=== PATIENT | male | born 1950 | race Caucasian/White ===

== ENCOUNTER 2017-05-19 11:18 | Inpatient (IN) | payer MEDICARE, BC ==
[~2017-05-19] VITALS: Ht 180.3 cm; Wt 115.9 kg
[2017-05-19 11:42] VITALS: BP 148/87
[2017-05-19 13:14] LABS: ALBUMIN 3.2 g/dL (3.4-5.0); ALBUMIN/GLOBULIN RATIO 0.7 (1.0-1.7); GFR 74.3; POTASSIUM 3.9 mmol/L (3.5-5.1); TOTAL BILIRUBIN 0.4 mg/dL (0.2-1.0); TOTAL PROTEIN 7.6 g/dL (6.4-8.2)
[2017-05-19] MEDS ORDERED: HYDROcodone/APAP 7.5/325MG 1 TAB TABLET PO PRN (13:30)
[2017-05-19 13:44] LABS: BASO % 0 % (0-3); EOS # 0.2 x10^3/uL (0.0-0.7); EOS % 2 % (0-3); HEMOGLOBIN 13.1 g/dL (13.0-17.5); LYMPH # 2.4 x10^3/uL (1.0-4.8); LYMPH % 22 % (24-48); MEAN CORPUSCULAR HEMOGLOBIN 27 pg (25-35); MEAN CORPUSCULAR HGB CONC 33 g/dL (31-37); MEAN CORPUSCULAR VOLUME 82 fL (79-100); MONO # 1.2 x10^3/uL (0.0-1.1); MONO % 11 % (0-9); NEUT # 7.3 x10^3uL (1.8-7.7); NEUT % 65 % (31-73); PLATELET COUNT 368 x10^3/uL (140-400); RED BLOOD COUNT 4.85 x10^6/uL (4.30-5.70); RED CELL DISTRIBUTION WIDTH 15.3 % (11.5-14.5); WHITE BLOOD COUNT 11.1 x10^3/uL (4.0-11.0)
[2017-05-19] MEDS ORDERED: HYDR25TA9 PO (14:15)
[2017-05-19] MEDS ORDERED: INSU100I32 SQ (14:15)
[2017-05-19] MEDS ORDERED: ICOS1CAP PO (14:15)
[2017-05-19] MEDS ORDERED: SITA1TAB11 PO (14:15)
[2017-05-19] MEDS ORDERED: LIRA0.6P2 SQ (14:15)
[2017-05-19] MEDS ORDERED: PREG100C PO (14:15)
[2017-05-19] MEDS ORDERED: HYDR-2766 PO (14:15)
[2017-05-19] MEDS ORDERED: LISI-334 PO (14:15)
[2017-05-19] MEDS ORDERED: ZOLP10TA PO (14:15)
[2017-05-19] MEDS ORDERED: OMEP20TA63 PO (14:15)
[2017-05-19] MEDS ORDERED: FENO160T PO (14:15)
[2017-05-19 14:21] LABS: % BANDS 1 % (0-9); % EOS 4 % (0-5); % LYMPHS 28 % (24-48); % MONOS 14 % (0-10); % SEGS 53 % (35-66); PLT ESTIMATE ADEQUATE (ADEQUATE)
[2017-05-19] MEDS ORDERED: VANCOMYCIN 2 GM in IV NORMAL SALINE 500ML 500 ML IV ONE (15:00)
[2017-05-19] MEDS: HEPARIN PF for SUB-Q USE 5,000 UNIT/0.5 ML VIAL. SQ SCH ×2 (15:01→21:14)
[2017-05-19] MEDS: PREGABALIN 100 MG CAPSULE PO SCH ×2 (15:01→21:13)
[2017-05-19 15:32] VITALS: BP 125/65
[2017-05-19] MEDS: VANCOMYCIN PER PHARMACY MC PRN (16:02)
--- NOTE | 2017-05-19 16:44 | RAD ---
Right lower extremity venous duplex ultrasound. 05/19/2017 4:40 PM Indication: Right lower extremity edema and tenderness Comparison study: None Discussion: Sonographic evaluation of the deep veins of the right lower extremity was performed. This includes grayscale imaging and color duplex imaging with spectral analysis. No evidence of deep venous thrombosis is seen. Interrogated veins are compressible and demonstrate augmentable blood flow and color Doppler imaging. Mildly prominent lymph node noted in the right groin measuring 4.3 x 1.0 (short axis) x 2.0 cm. Impression: 1.No evidence of deep venous thrombosis involving the right lower extremity 2. Mildly prominent lymph node the right groin. Findings most commonly reactive. Consider ultrasound follow up clinical concern persists.
[2017-05-19] MEDS ORDERED: LORazepam 2 MG/ML VIAL IV PRN (18:45)
[2017-05-19] MEDS: HYDROcodone/APAP 10/325 1 TAB TABLET PO PRN (19:46)
[2017-05-19 20:57] VITALS: BP 127/88
[2017-05-19] MEDS: NON FORMULARY ITEM (Icosapent Ethyl (Vascepa) 2 CAP) PO SCH (21:00)
[2017-05-19] MEDS: LACTOBACILLUS RHAMNOSUS GG 1 CAPSULE. PO SCH (21:11)
[2017-05-19] MEDS: ZOLPIDEM 5 MG TABLET. PO SCH (21:11)
[2017-05-19] MEDS: INSULIN GLARGINE HUM REC ANLOG 65 UNIT SQ SCH (21:12)
[2017-05-20 00:11] VITALS: BP 152/75
[2017-05-20] MEDS: HYDROcodone/APAP 10/325 1 TAB TABLET PO PRN ×4 (02:28→22:38)
[2017-05-20] MEDS: VANCOMYCIN 1.75 GM in IV NORMAL SALINE 500ML 500 ML IV SCH ×2 (02:28→15:33)
[2017-05-20] MEDS: PREGABALIN 100 MG CAPSULE PO SCH ×3 (05:17→22:00)
[2017-05-20] MEDS: HEPARIN PF for SUB-Q USE 5,000 UNIT/0.5 ML VIAL. SQ SCH ×3 (05:24→22:00)
[2017-05-20 06:15] LABS: BASO # 0.1 x10^3/uL (0.0-0.2); BASO % 1 % (0-3); EOS # 0.4 x10^3/uL (0.0-0.7); EOS % 4 % (0-3); HEMATOCRIT 35.6 % (39.0-53.0); HEMOGLOBIN 11.9 g/dL (13.0-17.5); LYMPH # 3.8 x10^3/uL (1.0-4.8); LYMPH % 36 % (24-48); MEAN CORPUSCULAR HEMOGLOBIN 28 pg (25-35); MEAN CORPUSCULAR HGB CONC 33 g/dL (31-37); MEAN CORPUSCULAR VOLUME 83 fL (79-100); MONO # 1.2 x10^3/uL (0.0-1.1); MONO % 11 % (0-9); NEUT # 5.2 x10^3uL (1.8-7.7); NEUT % 49 % (31-73); PLATELET COUNT 342 x10^3/uL (140-400); RED CELL DISTRIBUTION WIDTH 15.1 % (11.5-14.5); WHITE BLOOD COUNT 10.7 x10^3/uL (4.0-11.0)
[2017-05-20 06:20] LABS: CALCIUM 8.5 mg/dL (8.5-10.1); CREATININE 0.9 mg/dL (0.7-1.3); GFR 83.9; POTASSIUM 3.8 mmol/L (3.5-5.1)
[2017-05-20] MEDS ORDERED: metFORMIN XR 500 MG TAB.ER.24H PO SCH (08:00)
[2017-05-20] MEDS: PANTOPRAZOLE 40 MG TABLET. PO SCH (08:12)
[2017-05-20] MEDS: THIAMINE 100 MG TABLET. PO SCH (08:13)
[2017-05-20 08:15] VITALS: BP 155/74
[2017-05-20] MEDS: LISINOPRIL 20 MG TABLET PO SCH (08:19)
[2017-05-20] MEDS: FENOFIBRATE NANOCRYSTALLIZED 145 MG TABLET PO SCH (08:19)
[2017-05-20] MEDS: LACTOBACILLUS RHAMNOSUS GG 1 CAPSULE. PO SCH ×2 (08:20→21:00)
[2017-05-20] MEDS: NON FORMULARY ITEM (Liraglutide (Victoza 3-Pak) 1.8 MG) SQ SCH (08:28)
[2017-05-20] MEDS ORDERED: LINAGLIPTIN 5 MG TABLET PO SCH (09:00)
[2017-05-20] MEDS: NON FORMULARY ITEM (Icosapent Ethyl (Vascepa) 2 CAP) PO SCH ×2 (09:00→21:00)
[2017-05-20] MEDS ORDERED: hydroCHLOROthiazide 25 MG TABLET PO SCH (09:00)
[2017-05-20] MEDS ORDERED: IOHEXOL 300 MG/ML 75 ML VIAL. IV ONE (10:20)
[2017-05-20 10:42] VITALS: BP 159/58
--- NOTE | 2017-05-20 11:07 | RAD ---
CTA of the chest. 05/20/2017 Indication: Elevated d-dimer. Shortness of breath. Comparison study: [None available] Technique: Multidetector CT imaging of the chest was performed following the administration of intravenous contrast. Multiple reconstructions including 3-D maximum intensity projection reconstructions were created on an independent workstation and reviewed. Findings: There is no evidence of filling defect within central pulmonary arteries or other evidence of acute pulmonary embolism. Heart size is normal. No significant pericardial effusion is seen. No pathologic mediastinal adenopathy is identified. No pneumothorax or pleural effusion is seen. No acute osseous abnormality is identified. Very mild patchy groundglass infiltrates are noted in the bilateral upper lobes. Limited visualization of the upper abdomen demonstrates no acute abnormality. Impression: 1. No evidence of acute pulmonary embolism 2. Nonspecific, very mild patchy groundglass infiltrates in the bilateral upper lobes. Findings could represent mild nonspecific pneumonitis or possibly an early atypical infectious process PQRS Compliance Statement: One or more of the following individualized dose reduction techniques were utilized for this examination: 1. Automated exposure control 2. Adjustment of the mA and/or kV according to patient size 3. Use of iterative reconstruction technique
[2017-05-20] MEDS ORDERED: FUROSEMIDE 40 MG/4 ML VIAL IVP SCH (13:15)
[2017-05-20] MEDS ORDERED: DEXTROSE 50% 25 GM / 50ML DISP.SYRIN. IV PRN (14:45)
[2017-05-20 15:11] VITALS: BP 146/56
[2017-05-20] MEDS: INSULIN ASPART 300 UNITS/3 ML INSULN.PEN SQ SCH ×2 (17:00→22:37)
[2017-05-20 19:47] VITALS: BP 160/78
[2017-05-20] MEDS: ZOLPIDEM 5 MG TABLET. PO SCH (21:00)
[2017-05-20] MEDS: INSULIN GLARGINE HUM REC ANLOG 65 UNIT SQ SCH (22:37)
[2017-05-20 23:08] VITALS: BP 131/84
[2017-05-21 02:42] LABS: VANC TR 16.7 mcg/mL (10.0-20.0)
[2017-05-21] MEDS: VANCOMYCIN 1.75 GM in IV NORMAL SALINE 500ML 500 ML IV SCH ×2 (03:20→15:37)
[2017-05-21] MEDS: HYDROcodone/APAP 10/325 1 TAB TABLET PO PRN ×4 (03:21→21:28)
[2017-05-21 05:16] VITALS: BP 144/73
[2017-05-21] MEDS: HEPARIN PF for SUB-Q USE 5,000 UNIT/0.5 ML VIAL. SQ SCH ×3 (05:53→21:32)
[2017-05-21] MEDS: PREGABALIN 100 MG CAPSULE PO SCH ×3 (05:54→21:28)
[2017-05-21] MEDS: INSULIN ASPART 300 UNITS/3 ML INSULN.PEN SQ SCH ×4 (07:30→21:33)
[2017-05-21] MEDS: VANCOMYCIN PER PHARMACY MC PRN (08:19)
[2017-05-21] MEDS: metOLazone 5 MG TABLET PO SCH (08:26)
[2017-05-21] MEDS: LISINOPRIL 20 MG TABLET PO SCH (08:26)
[2017-05-21] MEDS: THIAMINE 100 MG TABLET. PO SCH (08:26)
[2017-05-21] MEDS: LACTOBACILLUS RHAMNOSUS GG 1 CAPSULE. PO SCH ×2 (08:26→21:28)
[2017-05-21] MEDS: PANTOPRAZOLE 40 MG TABLET. PO SCH (08:26)
[2017-05-21] MEDS: FENOFIBRATE NANOCRYSTALLIZED 145 MG TABLET PO SCH (08:26)
[2017-05-21] MEDS: NON FORMULARY ITEM (Icosapent Ethyl (Vascepa) 2 CAP) PO SCH ×2 (08:27→21:00)
[2017-05-21] MEDS: NON FORMULARY ITEM (Liraglutide (Victoza 3-Pak) 1.8 MG) SQ SCH (08:32)
[2017-05-21] MEDS ORDERED: FUROSEMIDE 40 MG/4 ML VIAL IVP SCH (09:00)
[2017-05-21] MEDS ORDERED: metOLazone 5 MG TABLET PO SCH (09:00)
[2017-05-21] MEDS: hydroCHLOROthiazide 25 MG TABLET PO SCH (09:30)
[2017-05-21 10:51] VITALS: BP 122/56
--- NOTE | 2017-05-21 14:06 | PN ---
DATE: 05/19/2017 SUBJECTIVE: A 67-year-old gentleman with cellulitis to the legs, sepsis, apparently been having positive lactic acid, fairly significant in the 2 range. As a result of this, the patient obviously is on double antibiotics including vancomycin and Levaquin and he is doing a little bit better. His white count has come down from 11 down to 10 and the patient has an increase in monocytes and his lactic acid was staying around as high as 3.9, down to 2.2. ____ double antibiotic therapy. The patient had a CTA because of the positive D-dimer. Possibly atypical pneumonia was noted incidentally in there, but he is on double antibiotics, but, they may check it just to make sure that if there has been ____. The leg looks much better, less swollen, but less redness, but we will go ahead and continue to diurese him, make further evaluation on him as indicated. IMPRESSION: Cellulitis to the leg, type 2 diabetes, peripheral edema. KEN SHAY MD DR: [email or web address] JOB#: [id number] / [id number]
[2017-05-21 14:49] VITALS: BP 134/76
[2017-05-21] MEDS ORDERED: IPRATRPIUM/ALBUTEROL 0.5/2.5MG 3 ML NEBU. ONE (15:40)
[2017-05-21 19:41] VITALS: BP 154/68
[2017-05-21] MEDS: IPRATRPIUM/ALBUTEROL 0.5/2.5MG 3 ML NEBU. NEB SCH (21:00)
[2017-05-21] MEDS: INSULIN GLARGINE HUM REC ANLOG 65 UNIT SQ SCH (21:27)
[2017-05-21] MEDS: ZOLPIDEM 5 MG TABLET. PO SCH (21:28)
[2017-05-21 22:43] VITALS: BP 174/69
[2017-05-22] MEDS: VANCOMYCIN 1.75 GM in IV NORMAL SALINE 500ML 500 ML IV SCH (03:13)
[2017-05-22] MEDS: HYDROcodone/APAP 10/325 1 TAB TABLET PO PRN ×2 (03:13→09:12)
--- NOTE | 2017-05-22 03:29 | PN ---
DATE: SUBJECTIVE: The patient in with cellulitis to the right lower leg, doing better there. He is still having quite a bit of swelling and because of HIS ALLERGY TO FUROSEMIDE, he has to stay with the ____ started him with Zaroxolyn and metformin. We will go ahead and continue to try to diurese him with the HydroDIURIL and the metolazone, Zaroxolyn. OBJECTIVE: LUNGS: Otherwise, show some expiratory wheezes. CARDIOVASCULAR: Regular sinus rhythm. ABDOMEN: Soft, nontender and protuberant. EXTREMITIES: Right leg, the inflammation is down, but the swelling is significant ____ on top of his foot and +2 on the lower extremities. We will continue to try to diurese him and make further evaluation on those results. Otherwise, cellulitis of the right lower leg. Significant edema to the lower extremities. Pneumonia of unspecified etiology, exacerbation of COPD, morbid obesity, and type 2 diabetes. KEN SHAY MD DR: [email or web address] JOB#: [id number] / [id number]
[2017-05-22] MEDS: PREGABALIN 100 MG CAPSULE PO SCH (05:37)
[2017-05-22 05:38] VITALS: BP 132/75
[2017-05-22] MEDS: HEPARIN PF for SUB-Q USE 5,000 UNIT/0.5 ML VIAL. SQ SCH (05:45)
[2017-05-22 06:02] LABS: BASO # 0.1 x10^3/uL (0.0-0.2); BASO % 1 % (0-3); EOS # 0.4 x10^3/uL (0.0-0.7); EOS % 4 % (0-3); HEMATOCRIT 34.9 % (39.0-53.0); HEMOGLOBIN 11.4 g/dL (13.0-17.5); LYMPH # 3.6 x10^3/uL (1.0-4.8); LYMPH % 37 % (24-48); MEAN CORPUSCULAR HEMOGLOBIN 27 pg (25-35); MEAN CORPUSCULAR HGB CONC 33 g/dL (31-37); MEAN CORPUSCULAR VOLUME 84 fL (79-100); MONO # 1.1 x10^3/uL (0.0-1.1); MONO % 11 % (0-9); NEUT # 4.5 x10^3uL (1.8-7.7); NEUT % 46 % (31-73); PLATELET COUNT 277 x10^3/uL (140-400); RED BLOOD COUNT 4.18 x10^6/uL (4.30-5.70); RED CELL DISTRIBUTION WIDTH 15.3 % (11.5-14.5); WHITE BLOOD COUNT 9.8 x10^3/uL (4.0-11.0)
[2017-05-22 06:14] LABS: ALBUMIN 2.8 g/dL (3.4-5.0); ALBUMIN/GLOBULIN RATIO 0.8 (1.0-1.7); CALCIUM 8.7 mg/dL (8.5-10.1); CREATININE 1.1 mg/dL (0.7-1.3); GFR 66.6; POTASSIUM 3.7 mmol/L (3.5-5.1); TOTAL BILIRUBIN 0.3 mg/dL (0.2-1.0); TOTAL PROTEIN 6.5 g/dL (6.4-8.2)
[2017-05-22 07:00] LABS: % BANDS 3 % (0-9); % BASOS 2 % (0-3); % EOS 7 % (0-5); % LYMPHS 40 % (24-48); % METAS 2 % (0-0); % MONOS 8 % (0-10); % SEGS 38 % (35-66)
[2017-05-22 07:01] LABS: PLT ESTIMATE ADEQUATE (ADEQUATE)
[2017-05-22] MEDS: INSULIN ASPART 300 UNITS/3 ML INSULN.PEN SQ SCH (07:29)
[2017-05-22] MEDS ORDERED: metFORMIN XR 500 MG TAB.ER.24H PO SCH (08:00)
[2017-05-22] MEDS: THIAMINE 100 MG TABLET. PO SCH (08:14)
[2017-05-22] MEDS: FENOFIBRATE NANOCRYSTALLIZED 145 MG TABLET PO SCH (08:14)
[2017-05-22] MEDS: PANTOPRAZOLE 40 MG TABLET. PO SCH (08:14)
[2017-05-22] MEDS: metOLazone 5 MG TABLET PO SCH (08:14)
[2017-05-22] MEDS: LISINOPRIL 20 MG TABLET PO SCH (08:14)
[2017-05-22] MEDS: NON FORMULARY ITEM (Icosapent Ethyl (Vascepa) 2 CAP) PO SCH (08:15)
[2017-05-22] MEDS: LACTOBACILLUS RHAMNOSUS GG 1 CAPSULE. PO SCH (08:15)
[2017-05-22] MEDS: NON FORMULARY ITEM (Liraglutide (Victoza 3-Pak) 1.8 MG) SQ SCH (08:19)
[2017-05-22] MEDS: IPRATRPIUM/ALBUTEROL 0.5/2.5MG 3 ML NEBU. NEB SCH (08:21)
[2017-05-22] MEDS: hydroCHLOROthiazide 25 MG TABLET PO SCH (09:12)
[2017-05-22] MEDS: VANCOMYCIN PER PHARMACY MC PRN (09:34)
[2017-05-22] MEDS ORDERED: LEVO500T59 PO (09:59)
[2017-05-22] MEDS ORDERED: IPRA3AMP NEB (09:59)
[2017-05-22] MEDS ORDERED: VANC1VIA3 MC (09:59)
[2017-05-22] MEDS ORDERED: METO5TAB4 PO (09:59)
[2017-05-22 10:40] VITALS: BP 154/62
[2017-05-23] MEDS ORDERED: levoFLOXacin 750 MG TABLET PO SCH (06:00)
== END 2017-05-22 11:27 | disposition home or self-care (01) | DRG 871 ==
LOC: 1 SOUTH 11:18
PROVIDERS: ADMIT Family Medicine; ATTEND Family Medicine
PROC: 02HV33Z Insertion of Infusion Device into Superior Vena Cava, Percutaneous Approach (ICD-10-PCS; principal; 2017-05-19)
PROC: B548ZZA Ultrasonography of Superior Vena Cava, Guidance (ICD-10-PCS; 2017-05-19)
DX: A41.9 Sepsis, unspecified organism (principal); J18.9 Pneumonia, unspecified organism; E11.42 Type 2 diabetes mellitus with diabetic polyneuropathy; J44.0 Chronic obstructive pulmonary disease with (acute) lower respiratory infection; L03.115 Cellulitis of right lower limb; J44.1 Chronic obstructive pulmonary disease with (acute) exacerbation; E66.01 Morbid (severe) obesity due to excess calories; Z68.35 Body mass index [BMI] 35.0-35.9, adult; Z88.8 Allergy status to other drugs, medicaments and biological substances; I10 Essential (primary) hypertension; E78.00 Pure hypercholesterolemia, unspecified; E11.65 Type 2 diabetes mellitus with hyperglycemia; Z79.899 Other long term (current) drug therapy
CPT/HCPCS: 36415; 36569; 71275; 80048; 80053; 80202; 82947; 83605; 85007; 85025; 85379; 86738; 87040; 93971; 94640; J1815; J1956; J3370; J7040; J7620; Q9967

== ENCOUNTER → 2017-07-29 | Outpatient (CLI) | payer MEDICARE, BC ==
[~2017-07-29] MED LIST: FENO160T PO; HYDR-2766 PO; HYDR25TA9 PO; ICOS1CAP PO; INSU100I32 SQ; IPRA3AMP NEB; LEVO500T59 PO; LIRA0.6P2 SQ; LISI-334 PO; METO5TAB4 PO; OMEP20TA63 PO; PREG100C PO; SITA1TAB11 PO; VANC1VIA3 MC; ZOLP10TA PO
--- NOTE | 2017-07-29 17:18 | RAD ---
Ultrasound venous left lower extremity 07/29/2017 Clinical indication: Left leg swelling. Comparison: None. Findings: Grayscale, color Doppler and spectral waveform analysis of the left lower extremity with serial graded compression augmentation. Left common femoral, femoral and popliteal veins are patent with normal color Doppler imaging. Limited evaluation of the calf veins are unremarkable. There are mildly prominent morphologically left inguinal lymph nodes, likely reactive. Impression: No evidence of DVT in the left lower extremity.
== END | disposition home or self-care (01) ==
LOC: US 16:25
PROVIDERS: ATTEND Family Medicine
DX: M79.89 Other specified soft tissue disorders (principal)
CPT/HCPCS: 93971